=== PATIENT | male | born 1990 | race African-American/Black ===

== ENCOUNTER 2020-11-15 13:15 | Outpatient (CLI) | payer BC, SELFPAY | END 2020-11-15 13:16 | disposition home or self-care (01) | LOC: ANHCOVIDVC 13:15 | DX: Z23 Encounter for immunization (principal) | CPT/HCPCS: 0001A; 91300 ==

== ENCOUNTER 2020-12-06 13:09 | Outpatient (CLI) | payer BC, SELFPAY | END 2020-12-06 13:10 | disposition home or self-care (01) | LOC: ANHCOVIDVC 13:10 | DX: Z23 Encounter for immunization (principal) | CPT/HCPCS: 0002A; 91300 ==